=== PATIENT | male | born 1950 | race Caucasian/White ===

== ENCOUNTER 2017-11-18 09:12 | Emergency (ER) | payer OTHER, MEDICARE ==
[~2017-11-18] VITALS: Ht 175.3 cm; Wt 158.8 kg
--- NOTE | 2017-11-18 09:33 | ED GENERAL ADULT ---
History of Present Illness General Chief Complaint: General Adult Stated Complaint: BROWN HEMATURIA, LOW BACK PAIN Source: patient Exam Limitations: no limitations Vital Signs & Intake/Output Vital Signs & Intake/Output Vital Signs Date Time Temp Pulse Resp B/P B/P Pulse O2 O2 Flow FiO2 Mean Ox Delivery Rate 11/19 927 97 Room Air 11/18 920 98.5 50 18 131/66 95 Room Air Allergies Coded Allergies: No Known Allergies (11/18/17) Reconcile Medications Aspirin (Aspirin*) 81 MG TAB.CHEW 1 TAB PO DAILY HEART HEALTH (Reported) Atenolol 50 MG TABLET 1 TAB PO DAILY HEART (Reported) Atorvastatin Calcium 40 MG TABLET 1 TAB PO DAILY CHOLESTEROL (Reported) Benazepril HCl 40 MG TABLET 1 TAB PO DAILY HEART (Reported) Furosemide (Lasix) 40 MG TABLET 1 TAB PO DAILY WATER RETENTION (Reported) Triage Note: 67 Y/O MALE BROWN FROM HOME FOR EVAL OF HEMATURIA AND LOWER BACK PAIN, SUDDEN ONSET THIS AM. PT ARRIVES TO ED A/O X 4, SPEAKING CLEARLY WITH NO DISTRESS. STATES HE WENT TO BATHROOM AND URINATED URINE FOLLOWED BY "THE URINE STOPPED AND IT WAS JUST BLOOD". PT STATES, AT THAT TIME, HE HAD ONSET OF LOWER BACK PAIN. PT UNSURE OF HX KIDNEY STONES STATING "I MIGHT HAVE HAD ONE A FEW WEEKS AGO - I HAD L FLANK PAIN WHICH WENT AWAY". PT DENIES OTHER COMPLAINTS. Triage Nurses Notes Reviewed? yes HPI: 67-year-old male who is presenting to the emergency department with complaints of hematuria. Patient states he had urinated in the morning approximately at 330 which was normal, then at 7:30 AM he had urinated which was initally normal after completing his urination he experienced expulsion of blood from his penis along with severe pain "in my penis". Patient denies any trauma, previous dysuria, increased urgency. Patient states back in September he had some pain in his lower back on the left side far from his spine, and he called his salesperson driver Dr. Craig after completing the call went to the bathroom and the pain had resolved, states that the salesperson driver thinks that the patient had passed a kidney stone at that time. Patient denies any signs of infection, headaches, confusion, dizziness, chest pain, palpitation, diarrhea, constipation. Patient denies a history of smoking, urinary dribbling, hesitation, history of enlarged prostate. Past History Travel History Traveled to [place] past 21 day No Medical History Any Pertinent Medical History? 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 No Review of Systems Review of Systems Constitutional: Reports: see HPI. Physical Exam Physical Exam General Appearance: well developed/nourished, no apparent distress Head: atraumatic, normal appearance Eyes: Bilateral: PERRL, EOMI. Neck: supple Respiratory: normal breath sounds, lungs clear Cardiovascular: regular rate/rhythm Gastrointestinal: normal bowel sounds, soft, non-tender, obese Extremities: +2 pitting edema in bilat. feet Bilat LE wrapped in ruth bandage due to chronic ulcerations. Comments: No blood present on penile orifice. No deformity noted. Patient does have erytheamatous rash present involving scrotum Core Measures ACS in differential dx? No CVA/TIA Diagnosis: No Sepsis Present: No Sepsis Focused Exam Completed? No Progress Differential Diagnoses I considered the following diagnoses in my evaluation of the patient: 1. Nephrolithiasis - patient hisotry of previous passing a stone, along with hematuria and pain this time are suggestive 2. BPH: patient has not been formally diangosed, but is a 67 years old may have enlarged prostate 3. UTI: hematuria + pain, is suggesstive of UTI however patient has been afebrile 4. Bladder carcinoma Plan of Care: Orders Procedure Date/time Status Add-on Test (ER Only) 11/18 1156 Active CULTURE,URINE 11/18 1056 Active URINALYSIS 11/18 1016 Complete PARTIAL THROMBOPLASTIN TIME 11/18 1016 Complete PROTHROMBIN TIME 11/18 1016 Complete COMPREHENSIVE METABOLIC PANEL 11/18 1016 Complete CBC WITHOUT DIFFERENTIAL 11/18 1016 Complete Laboratory Tests 11/18/17 1056: Urine Color PRASHANT, Urine Clarity HAZY H, Urine pH 6.0, Ur Specific [place] 1.025, Urine Protein NEG, Urine Ketones NEG, Urine Nitrite NEG, Urine Bilirubin NEG, Urine Urobilinogen 0.2, Ur Leukocyte Esterase TRACE H, Ur Microscopic SEDIMENT EXAMINED, Urine RBC >75 H, Urine WBC 1-3 H, Ur Epithelial Cells RARE, Urine Bacteria FEW H, Urine Hemoglobin LARGE H, Urine Glucose NEG 11/18/17 1024: Anion Gap 6, Estimated GFR > 60, BUN/Creatinine Ratio 19.2, Glucose 108 H, Calcium 9.6, Total Bilirubin 0.5, AST 19, ALT 33, Alkaline Phosphatase 115, Total Protein 6.3, Albumin 3.3 L, Globulin 3.0, Albumin/Globulin Ratio 1.1, PT 13.2 H, INR 1.21 H, APTT 29, CBC w Diff NO MAN DIFF REQ, RBC 3.97 L, MCV 94.8 H, MCH 31.9 H, MCHC 33.7, RDW 14.7 H, MPV 8.8, Gran % 70.7, Lymphocytes % 15.8 L, Monocytes % 10.9 H, Eosinophils % 1.5, Basophils % 1.1, Absolute Granulocytes 5.9, Absolute Lymphocytes 1.3, Absolute Monocytes 0.9 H, Absolute Eosinophils 0.1, Absolute Basophils 0.1 Microbiology 11/18 1056 URINE ROUT: Urine Culture - RECD Initial ED EKG: none Comments: This patient's gross hematuria has resolved, patient continues to have hematuria on urine. We will discharge patient with Keflex for possible UTI as a contributor to his bleeding. Will advise patient to follow-up with the urologist and provide referral if necessary for further evaluation of hematuria. Departure Departure Disposition: HOME OR SELF CARE Condition: Stable Clinical Impression Primary Impression: UTI (urinary tract infection) Qualifiers: Urinary tract infection type: acute cystitis Hematuria presence: with hematuria Qualified Code: N30.01 - Acute cystitis with hematuria Secondary Impressions: Hematuria due to cystitis Referrals: Wilbert CASTAÑEDA,Juan Shell (PCP/Family) Alan Jackson MD Additional Instructions: Please take antibiotics as directed. Please follow-up with your PCP and importantly your urologist Dr. Jackson referral has been provided please schedule an appointment within a week. If you continue to have blood in urine please come back to emergency room if you are unable to see your urologist. Please note that there might be incidental findings in your evaluation that are unrelated to the current emergency department visit. Please notify your primary care doctor about this emergency department visit in order to obtain and review all of the testing performed so that these incidental findings can be monitored as needed. If you had an x-ray performed, please understand that some fractures or other findings may not be seen on the initial set of x-rays. If your symptoms persist you might need a repeat set of x-rays to check for such a fracture. If you had a laceration evaluated, please understand that foreign bodies such as glass or wood may not be visible to the naked eye or on plain x-rays. If the wound becomes red, swollen, increasingly more painful or if there is any drainage from the wound, please have it reevaluated by a physician for the possibility of a retained foreign body. If you're unable to follow up as outlined in the discharge instructions please return to the emergency department. Thank you for choosing the [facility] Emergency Department for your care. It was a pleasure to serve you today. Departure Forms: Customer Survey General Discharge Information Prescriptions: Current Visit Scripts Cephalexin (Keflex) 1 CAP PO BID #[id number] of the abdomen does not show any stones, ZOEY was negative for enlarged prostate or nodules. Hematuria is most likely related to UTI even though patient was afebrile. Critical Care Note Critical Care Note Critical Care Time: non-applicable ED Attending Observation Initial Observation Note: I have seen and personally examined JOSEPH ESPINOSA on 11/18/17 at 1125. I agree with the current emergency department documentation. The disposition (admission or discharge) is uncertain at this time, he needs a period of observation for the following reason(s): The ED Nurse caring for this patient has been personally informed as to what the patient is being observed for.
[2017-11-18] MEDS ORDERED: ATENOLOL50 M1 PO (10:18)
[2017-11-18] MEDS ORDERED: LASIX40 M1 PO (10:18)
[2017-11-18] MEDS ORDERED: ASPIRIN81 M4 PO (10:18)
[2017-11-18] MEDS ORDERED: ATORVASTATIN CA40 M1 PO (10:19)
[2017-11-18] MEDS ORDERED: BENAZEPRIL HCL40 MG PO (10:19)
[2017-11-18 10:39] LABS: ABSOLUTE BASOPHIL COUNT 0.1 /CUMM (0.0-0.2); ABSOLUTE EOSINOPHIL COUNT 0.1 /CUMM (0.0-0.7); ABSOLUTE GRANULOCYTE CT 5.9 /CUMM (1.4-6.5); ABSOLUTE LYMPH COUNT 1.3 /CUMM (1.2-3.4); ABSOLUTE MONOCYTE COUNT 0.9 /CUMM (0.10-0.60); BASOPHIL % 1.1 % (0.0-2.0); EOSINOPHIL % 1.5 % (0-5); GRANULOCYTE % 70.7 % (42.2-75.2); HEMATOCRIT 37.6 % (42-52); MEAN CORPUSCULAR HGB 31.9 PG (27.0-31.0); MEAN CORPUSCULAR HGB CONC 33.7 G/DL (33.0-37.0); MEAN CORPUSCULAR VOLUME 94.8 FL (80.0-94.0); MEAN PLATELET VOLUME 8.8 FL (7.4-10.4); PLATELET COUNT 177 /CUMM (130-400); RBC DISTRIBUTION WIDTH 14.7 % (11.5-14.5); RED BLOOD CELL CT 3.97 /CUMM (4.70-6.10); WHITE BLOOD CELL COUNT 8.3 /CUMM (4.8-10.8)
[2017-11-18 10:46] LABS: PT 13.2 SEC (9.4-12.5); PTT 29 SEC (25-37)
--- NOTE | 2017-11-18 11:26 | CT SCAN REPORT ---
EXAMINATION: CT ABDOMEN AND PELVIS WITHOUT CONTRAST CLINICAL INFORMATION: Hematuria.? History of stones in the past. Presumptive diagnosis: Renal stones. COMPARISON: Renal ultrasound 08/21/2017. TECHNIQUE: Multidetector volumetric imaging was performed from the superior aspect of the liver through the pubic symphysis. Sagittal and coronal reformatted images were obtained on the technologist's workstation. DLP: 1529.72 mGy-cm FINDINGS: LUNG BASES: The visualized lung bases are unremarkable. There is cardiomegaly, particularly of the the left atrium. LIVER, GALLBLADDER, AND BILIARY TREE: The liver is normal in size, shape, and attenuation. No focal hepatic lesion or biliary ductal dilatation is present. The gallbladder is unremarkable with no evidence of radiopaque gallstones, gallbladder wall thickening, or obvious pericholecystic inflammatory changes. PANCREAS: Unremarkable. SPLEEN: Unremarkable. ADRENAL GLANDS: Unremarkable. KIDNEYS AND URETERS: Right renal cysts are again noted. There were no renal or ureteral calculi. There is no hydronephrosis. BLADDER: Unremarkable. GASTROINTESTINAL TRACT: There are scattered colonic diverticula. There is no evidence of diverticulitis. The appendix is not clearly identified. The small bowel is unremarkable. ABDOMINAL WALL: There are small fat-containing umbilical and right inguinal hernias. LYMPH NODES: Normal. VASCULAR: Unremarkable. PELVIC VISCERA: Unremarkable. OSSEOUS STRUCTURES: There is severe degenerative disc disease at L4-L5 and L5-S1. There is severe osteoarthritis of the right hip and mild osteoarthritis in the left hip. IMPRESSION: 1. Cardiomegaly, particularly of the left atrium. 2. Right renal cysts. No renal or ureteral calculi. 3. Colonic diverticulosis without evidence of diverticulitis. 4. Small fat-containing umbilical and right inguinal hernias. 5. Severe degenerative disc disease at L4-L5 and L5-S1. Severe osteoarthritis of the right hip and mild osteoarthritis of the left hip.
--- NOTE | 2017-11-18 11:36 | ED GENERAL ADULT ---
History of Present Illness General Chief Complaint: General Adult Stated Complaint: BIBA HEMATURIA, LOW BACK PAIN Source: patient Exam Limitations: no limitations Vital Signs & Intake/Output Vital Signs & Intake/Output Vital Signs Date Time Temp Pulse Resp B/P B/P Pulse O2 O2 Flow FiO2 Mean Ox Delivery Rate 11/19 927 97 Room Air 11/18 920 98.5 50 18 131/66 95 Room Air Allergies Coded Allergies: No Known Allergies (11/18/17) Reconcile Medications Aspirin (Aspirin*) 81 MG TAB.CHEW 1 TAB PO DAILY HEART HEALTH (Reported) Atenolol 50 MG TABLET 1 TAB PO DAILY HEART (Reported) Atorvastatin Calcium 40 MG TABLET 1 TAB PO DAILY CHOLESTEROL (Reported) Benazepril HCl 40 MG TABLET 1 TAB PO DAILY HEART (Reported) Furosemide (Lasix) 40 MG TABLET 1 TAB PO DAILY WATER RETENTION (Reported) Triage Note: 67 Y/O MALE BIBA FROM HOME FOR EVAL OF HEMATURIA AND LOWER BACK PAIN, SUDDEN ONSET THIS AM. PT ARRIVES TO ED A/O X 4, SPEAKING CLEARLY WITH NO DISTRESS. STATES HE WENT TO BATHROOM AND URINATED URINE FOLLOWED BY "THE URINE STOPPED AND IT WAS JUST BLOOD". PT STATES, AT THAT TIME, HE HAD ONSET OF LOWER BACK PAIN. PT UNSURE OF HX KIDNEY STONES STATING "I MIGHT HAVE HAD ONE A FEW WEEKS AGO - I HAD L FLANK PAIN WHICH WENT AWAY". PT DENIES OTHER COMPLAINTS. Triage Nurses Notes Reviewed? yes HPI: 67-year-old male presents with hematuria. He reported 1 episode of hematuria with penile pain which is now resolved. He denies any new back pain (patient has chronic back pain). Patient denies fever, chills. He denies abdominal pain. Past History Travel History Traveled to [place] past 21 day No Medical History Any Pertinent Medical History? 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 No Review of Systems Review of Systems Constitutional: Denies: chills, diaphoresis, fever. EENTM: Denies: blurred vision, double vision, visual changes. Respiratory: Denies: cough, hemoptysis, orthopnea. Cardiovascular: Denies: chest pain, edema, orthopena. GI: Denies: abdominal pain, bloating, constipation. Genitourinary: Reports: dysuria, hematuria. Denies: discharge, frequency. Musculoskeletal: Denies: back pain, gout. Skin: Denies: cysts, change in skin color. Neurological/Psychological: Denies: anxiety, ataxia. Physical Exam Physical Exam General Appearance: well developed/nourished, no apparent distress, alert, awake Head: atraumatic, normal appearance Eyes: Bilateral: PERRL, EOMI. Ears, Nose, Throat: normal pharynx, normal ENT inspection Neck: normal inspection, supple, full range of motion Respiratory: normal breath sounds, chest non-tender, no respiratory distress Cardiovascular: regular rate/rhythm Gastrointestinal: normal bowel sounds, soft, non-tender, see Dr. Toure's note Rectal: done by Dr. Toure Neurologic/Psych: no motor/sensory deficits, awake, alert, oriented x 3 Skin: intact, normal color Core Measures ACS in differential dx? No CVA/TIA Diagnosis: No Sepsis Present: No Sepsis Focused Exam Completed? No Progress Differential Diagnoses . Plan of Care: Orders Procedure Date/time Status URINALYSIS 11/18 1016 Complete PARTIAL THROMBOPLASTIN TIME 11/18 1016 Complete PROTHROMBIN TIME 11/18 1016 Complete COMPREHENSIVE METABOLIC PANEL 11/18 1016 Complete CBC WITHOUT DIFFERENTIAL 11/18 1016 Complete Laboratory Tests 11/18/17 1056: Urine Color PRASHANT, Urine Clarity HAZY H, Urine pH 6.0, Ur Specific [place] 1.025, Urine Protein NEG, Urine Ketones NEG, Urine Nitrite NEG, Urine Bilirubin NEG, Urine Urobilinogen 0.2, Ur Leukocyte Esterase TRACE H, Ur Microscopic SEDIMENT EXAMINED, Urine RBC >75 H, Urine WBC 1-3 H, Ur Epithelial Cells RARE, Urine Bacteria FEW H, Urine Hemoglobin LARGE H, Urine Glucose NEG 11/18/17 1024: Anion Gap 6, Estimated GFR > 60, BUN/Creatinine Ratio 19.2, Glucose 108 H, Calcium 9.6, Total Bilirubin 0.5, AST 19, ALT 33, Alkaline Phosphatase 115, Total Protein 6.3, Albumin 3.3 L, Globulin 3.0, Albumin/Globulin Ratio 1.1, PT 13.2 H, INR 1.21 H, APTT 29, CBC w Diff NO MAN DIFF REQ, RBC 3.97 L, MCV 94.8 H, MCH 31.9 H, MCHC 33.7, RDW 14.7 H, MPV 8.8, Gran % 70.7, Lymphocytes % 15.8 L, Monocytes % 10.9 H, Eosinophils % 1.5, Basophils % 1.1, Absolute Granulocytes 5.9, Absolute Lymphocytes 1.3, Absolute Monocytes 0.9 H, Absolute Eosinophils 0.1, Absolute Basophils 0.1 Initial ED EKG: none Comments: No distress. The patient's symptoms are not resolved. We will get a CT scan to rule out stone. We will check labs. 1154 gross hematuria has cleared. Patient is not anticoagulated. Stable hemoglobin and vital signs. He does have hematuria on the urine. Plan: Antibiotics for possible UTI, follow-up with urology for cystoscopy. CT scan negative, labs negative. No concern for acute renal colic. Plan will be urology follow-up, antibiotics, explained to the patient Departure Departure Time of Disposition: 1154 Disposition: HOME OR SELF CARE Condition: Stable Clinical Impression Primary Impression: Hematuria Referrals: Wilbert CASTAÑEDA,Juan Shell (PCP/Family) Additional Instructions: Return for dizziness, lightheadedness, increasing bleeding or pain. Return if the bleeding does not stop. Departure Forms: Customer Survey General Discharge Information Critical Care Note Critical Care Note Critical Care Time: non-applicable
[2017-11-18] MEDS ORDERED: KEFLEX500 M1 PO (12:47)
[2017-11-18 12:53] VITALS: BP 110/59
== END 2017-11-18 12:51 ==
LOC: ERH 09:12
PROVIDERS: Hospitalist
DX: N39.0 Urinary tract infection, site not specified (principal); N30.90 Cystitis, unspecified without hematuria; I48.91 Unspecified atrial fibrillation; I48.92 Unspecified atrial flutter; E78.5 Hyperlipidemia, unspecified; N19 Unspecified kidney failure
CPT/HCPCS: 74176; 81001; 87086